=== PATIENT | male | born 1970 | race Caucasian/White ===

== ENCOUNTER 2018-01-23 13:18 | Emergency (ER) | payer BC ==
[2018-01-23 16:16] LABS: ADD MAN DIFF? NO
[2018-01-23 16:19] LABS: BASOPHILS % 0.5 % (0.0-2.0); EOSINOPHILS # 0.1 10^3/ul (0.0-0.5); EOSINOPHILS % 2.1 % (0.0-7.0); HEMATOCRIT 49.2 % (42.0-52.0); HEMOGLOBIN 17.4 g/dl (14.0-18.0); LYMPHOCYTES # 1.5 10^3/ul (0.8-2.9); LYMPHOCYTES % 26.5 % (15.0-51.0); MEAN CORPUSCULAR HEMOGLOBIN 32.2 pg (29.0-33.0); MEAN CORPUSCULAR HGB CONC 35.4 g/dl (32.0-37.0); MEAN CORPUSCULAR VOLUME 91.1 fl (82.0-101.0); MEAN PLATELET VOLUME 9.9 fl (7.4-10.4); MONOCYTE # 0.8 10^3/ul (0.3-0.9); MONOCYTES % 14.4 % (0.0-11.0); NEUTROPHIL # 3.2 10^3/ul (1.6-7.5); PLATELET COUNT 211 10^3/UL (140-415); RED CELL DISTRIBUTION WIDTH 11.1 % (11.5-14.5)
[2018-01-23 16:19] LABS: WHITE BLOOD COUNT 5.8 10^3/ul (4.8-10.8)
[2018-01-23 16:35] LABS: LACTIC ACID 1.9 mmol/L (0.5-2.0)
[2018-01-23 16:37] LABS: INR 1.01; PROTIME 13.4 Sec (11.9-14.9)
[2018-01-23 16:38] LABS: PARTIAL THROMBOPLASTIN TIME 26.6 Sec (23.0-35.0)
[2018-01-23 16:39] LABS: ALANINE AMINOTRANSFERASE 34 IU/L (13-69); ALBUMIN 4.6 g/dl (3.3-4.9); ALBUMIN/GLOBULIN RATIO 1.04; ALKALINE PHOSPHATASE 76 IU/L (42-121); ANION GAP 13 (5-13); ASPARTATE AMINO TRANSFERASE 33 IU/L (15-46); BILIRUBIN,INDIRECT 0.7 mg/dl (0-1.1); BILIRUBIN,TOTAL 0.7 mg/dl (0.2-1.3); BLOOD UREA NITROGEN 10 mg/dl (7-20); C-REACTIVE PROTEIN 3.6 mg/dl (0.0-0.9); CALCIUM 10.5 mg/dl (8.4-10.2); CARBON DIOXIDE 26 mmol/L (21-31); CHLORIDE 97 mmol/L (97-110); CREATININE 0.64 mg/dl (0.61-1.24); Estimated GFR > 60 mL/min (>60); GLUCOSE 338 mg/dl (70-220); POTASSIUM 4.7 mmol/L (3.5-5.1); SODIUM 136 mmol/L (135-144)
[2018-01-23 16:47] LABS: TROPONIN-I 0.022 ng/ml (0.000-0.120)
[2018-01-23 17:27] LABS: ERYTHROCYTE SEDIMENTATION RATE 34 mm/Hr (0-15)
== END 2018-01-23 19:53 | disposition home or self-care (01) ==
LOC: E/R 13:18
DX: L03.116 Cellulitis of left lower limb (principal); E11.621 Type 2 diabetes mellitus with foot ulcer; L97.529 Non-pressure chronic ulcer of other part of left foot with unspecified severity; M79.672 Pain in left foot
CPT/HCPCS: 36415; 73630-LT; 80053; 83605; 84484; 85025; 85610; 85651; 85730; 86140; 87040; 93005; 99285-25